=== PATIENT | female | born 1955 | race Caucasian/White ===

== ENCOUNTER 2017-02-05 13:29 | Emergency (ER) | payer OTHER ==
[~2017-02-05] VITALS: Ht 167.6 cm; Wt 88.0 kg
[~2017-02-05 13:29] MED LIST: PRIL20CA PO; VALA500T PO
[2017-02-05 13:47] VITALS: BP 109/53; PULSE 84; RESP 24; TEMP 101; O2SAT 94
[2017-02-05] MEDS ORDERED: SODIUM CHLOR 0.9% 1000 ML INJ 1,000 ML IV SCH ×2 (13:50)
[2017-02-05 13:51] VITALS: BP 109/53; PULSE 90; RESP 24; TEMP 101; O2SAT 98
[2017-02-05 13:55] VITALS: O2SAT 98
[2017-02-05] MEDS ORDERED: ONDANSETRON HCL 4 MG/2 ML VIAL IVP ONE (14:00)
--- NOTE | 2017-02-05 14:03 | PD ---
HPI Chief Complaint: Dizziness Time Seen by Provider: 13:45 Travel History International Travel<30 days: No Contact w/Intl Traveler<30days: No Traveled to known affect area: No History of Present Illness HPI This is a 61-year-old female with history of non-Hodgkin's lymphoma in remission for the past 6 years. She presents via EMS for evaluation of fever, weakness, syncope, vaginal discharge. The patient reports that she has a new boyfriend and over the past month she has been having intercourse very frequent only. As a result she developed some yellow foul-smelling discharge several days ago. She was seen at walk-in clinic where pelvic examination and testing was performed. She was diagnosed with vaginitis and prescribed Flagyl which she started using 2 days ago. Yesterday she was feeling weak and lightheaded for most of the day, worse when standing and improves when she is lying down flat. She also was having some epigastric abdominal cramping. Today she had persistent symptoms and she was seen at an urgent care center where according to her paperwork the plan was to discontinue the Flagyl and start her on clindamycin gel intravaginally. Prior to discharge she apparently had a syncopal event in a chair and urinated on the chair. There was no reported seizure activity or postictal state. Upon my examination she is awake and alert and is currently feeling okay. She does endorse fevers this morning as high as 102 at home. She endorses some intermittent abdominal pain, cramping, and the epigastrium. She denies any dysuria, flank pain, stiff neck, rash, headache, chest pain or shortness of breath, cough. She does endorse congestion for the past 2 months. She has no other complaints at this time. PFSH Past Medical History Cancer: Yes (T CELL NON HODGKINS LYMPHOMA 2009 ) Diabetes: No Diminished Hearing: No Hepatitis: No Hiatal Hernia: No Medical other: Yes (SARCOIDOSIS) Respiratory: Yes (BRONCHITIS) Thyroid Disease: No Menopausal: Yes : 2 Para: 2 Past Surgical History Abdominal Surgery: Yes (LAP DOUGLAS) Cardiac Surgery: No Cholecystectomy: Yes Ear Surgery: No Endocrine Surgery: No Eye Surgery: No Genitourinary Surgery: No Gynecologic Surgery: No Oral Surgery: No Pacemaker: No Thoracic Surgery: No Tonsillectomy: Yes Other Surgery: Yes Social History Alcohol Use: Yes ("A COUPLE DRINKS HERE AND THERE") Tobacco Use: No Substance Use: No Allergies-Medications (Allergen,Severity, Reaction): Coded Allergies: Codeine (Verified Allergy, Severe, Hallucinations, 02/05/17) Uncoded Allergies: ASPARTANE (Allergy, Mild, HEADACHE/VOMITING, 06/09/07) Reported Meds & Prescriptions Reported Meds & Active Scripts Active No Active Prescriptions or Reported Medications Review of Systems Except as stated in HPI: all other systems reviewed are Neg Physical Exam Narrative GENERAL: Well-developed well-nourished female in no acute distress. SKIN: Warm and dry. HEAD: Atraumatic. Normocephalic. EYES: Pupils equal and round. No scleral icterus. No injection or drainage. ENT: No nasal bleeding or discharge. Mucous membranes pink and moist. NECK: Trachea midline. No JVD. CARDIOVASCULAR: Regular rate and rhythm. No murmur appreciated. RESPIRATORY: No accessory muscle use. Clear to auscultation. Breath sounds equal bilaterally. GASTROINTESTINAL: Abdomen soft, mild tenderness to palpation in the epigastrium and lower quadrants without guarding. There is no CVA tenderness. Pelvic examination performed in the presence of a female nurse: There is some irritation and erythema of the vaginal canal. There is some yellow discharge noted in the distal vaginal canal. The cervical os is closed. There is no cervical motion tenderness or adnexal tenderness. MUSCULOSKELETAL: No obvious deformities. No clubbing. No cyanosis. No edema. NEUROLOGICAL: Awake and alert. No obvious cranial nerve deficits. Motor grossly within normal limits. Normal speech. PSYCHIATRIC: Appropriate mood and affect; insight and judgment normal. Data Data Last Documented VS Vital Signs Date Time Temp Pulse Resp B/P Pulse Ox O2 Delivery O2 Flow Rate FiO2 02/05/17 15:45 97.8 82 18 94/51 98 Room Air Orders Complete Blood Count With Diff (02/05/17 13:50) Comprehensive Metabolic Panel (02/05/17 13:50) Lactic Acid Sepsis Protocol (02/05/17 13:50) Lipase (02/05/17 13:50) Ckmb (Isoenzyme) Profile (02/05/17 13:50) Troponin I (02/05/17 13:50) Urinalysis - C+S If Indicated (02/05/17 13:50) Blood Culture (02/05/17 13:50) Chest, Single Ap (02/05/17 13:50) Ecg Monitoring (02/05/17 13:50) Iv Access Insert/Monitor (02/05/17 13:50) Oximetry (02/05/17 13:50) Oxygen Administration (02/05/17 13:50) Influenzae A/B Antigen (02/05/17 13:50) Electrocardiogram (02/05/17 13:50) Ct Abd/Pel W Iv Contrast(Rout) (02/05/17 13:50) Ondansetron Inj (Zofran Inj) (02/05/17 14:00) Sodium Chlor 0.9% 1000 Ml Inj (Ns 1000 M (02/05/17 13:50) Sodium Chlor 0.9% 1000 Ml Inj (Ns 1000 M (02/05/17 13:50) Gc And Chlamydia Pcr (02/05/17 15:23) Wet Prep Profile (02/05/17 15:23) Urine Culture (02/05/17 15:30) Iohexol 350 Inj (Omnipaque 350 Inj) (02/05/17 16:29) Ceftriaxone Inj (Rocephin Inj) (02/05/17 17:15) Azithromycin Inj (Zithromax Inj) (02/05/17 17:15) Labs Laboratory Tests Test 02/05/17 02/05/17 02/05/17 14:00 15:30 15:40 White Blood Count 7.1 TH/MM3 Red Blood Count 3.99 MIL/MM3 Hemoglobin 12.6 GM/DL Hematocrit 36.2 % Mean Corpuscular Volume 90.7 FL Mean Corpuscular Hemoglobin 31.5 PG Mean Corpuscular Hemoglobin 34.8 % Concent Red Cell Distribution Width 14.1 % Platelet Count 116 TH/MM3 Mean Platelet Volume 7.5 FL Neutrophils (%) (Auto) 87.7 % Lymphocytes (%) (Auto) 2.5 % Monocytes (%) (Auto) 7.2 % Eosinophils (%) (Auto) 2.4 % Basophils (%) (Auto) 0.2 % Neutrophils # (Auto) 6.3 TH/MM3 Lymphocytes # (Auto) 0.2 TH/MM3 Monocytes # (Auto) 0.5 TH/MM3 Eosinophils # (Auto) 0.2 TH/MM3 Basophils # (Auto) 0.0 TH/MM3 CBC Comment DIFF FINAL Differential Comment Sodium Level 136 MEQ/L Potassium Level 3.7 MEQ/L Chloride Level 102 MEQ/L Carbon Dioxide Level 24.5 MEQ/L Anion Gap 10 MEQ/L Blood Urea Nitrogen 14 MG/DL Creatinine 1.06 MG/DL Estimat Glomerular Filtration 53 ML/MIN Rate Random Glucose 125 MG/DL Lactic Acid Level 1.2 mmol/L Calcium Level 8.6 MG/DL Total Bilirubin 0.5 MG/DL Aspartate Amino Transf 28 U/L (AST/SGOT) Alanine Aminotransferase 26 U/L (ALT/SGPT) Alkaline Phosphatase 61 U/L Total Creatine Kinase 54 U/L Troponin I LESS THAN 0.02 NG/ML Total Protein 6.7 GM/DL Albumin 3.4 GM/DL Lipase 51 U/L Urine Color YELLOW Urine Turbidity HAZY Urine pH 5.5 Urine Specific [place] 1.017 Urine Protein 30 mg/dL Urine Glucose (UA) NEG mg/dL Urine Ketones NEG mg/dL Urine Occult Blood SMALL Urine Nitrite NEG Urine Bilirubin NEG Urine Urobilinogen LESS THAN 2.0 MG/DL Urine Leukocyte Esterase LARGE Urine RBC 18 /hpf Urine WBC /hpf Urine Squamous Epithelial 1 /hpf Cells Urine Transitional Epithelial 1 /hpf Cells Urine Renal Epithelial Cells <1 /hpf Urine Bacteria RARE /hpf Urine Mucus FEW /lpf Microscopic Urinalysis Comment CATH-CULTURE IND Clue Cells (Wet Prep) NONE SEEN Vaginal Trichomonas (Wet Prep) NONE SEEN Vaginal Yeast (Wet Prep) NONE SEEN MDM Medical Decision Making Medical Screen Exam Complete: Yes Emergency Medical Condition: Yes Medical Record Reviewed: Yes Differential Diagnosis Medication side effect, dehydration, electrolyte abnormality, rhabdomyolysis, heat illness, pelvic inflammatory disease, tubo-ovarian abscess, cystitis, pyelonephritis Narrative Course 61-year-old female who started on Flagyl 2 days ago for vaginitis, been experiencing some yellow discharge for the past several days, presents now with generalized weakness and lightheadedness for the past 2 days as well as some upper abdominal discomfort. She had a likely syncopal event today at an urgent care center. She is also been febrile at home today. On initial examination she appears well and she reports minimal complaints. She is febrile and her blood pressure somewhat low. She is not tachycardic. The patient was placed on the monitor and pulse oximetry. A 12-lead EKG will be obtained. Plan is for basic lab work, chest x-ray, CT of the abdomen and pelvis, pelvic examination. She will be given 2 L of IV fluids. The patient's labwork imaging studies a been reviewed. Her CT of the abdomen as well as her chest x-ray are suggestive of some developing pneumonia in the left lower lung. Upon further questioning the patient does endorse a dry cough which started 2 days ago. Her urinalysis is certainly suggestive of UTI as well with innumerable WBCs, cultures currently pending. Her wet prep was negative for clue cells/trichomoniasis/yeast and given her history it would be reasonable to cover her empirically for chlamydia and gonorrhea pending PCR results. The patient will therefore be given a dose of Rocephin and azithromycin through the IV here which should cover for community acquired pneumonia, chlamydia and gonorrhea, UTI. She'll be discharged with a ten-day course of Levaquin which should be reasonable coverage for UTI and pneumonia. She is feeling significantly improved and she was able to stand without assistance and without any dizziness or lightheadedness. Her blood pressure has improved as well to a systolic of 114 while standing. We discussed signs and symptoms warrant returning to the emergency room. She is stable for discharge. She has requested a prescription for the clindamycin vaginal suppository that was being prescribed by the urgent care center today. Diagnosis Primary Impression: Pneumonia Qualified Code: J18.1 - Pneumonia of left lower lobe due to infectious organism Additional Impressions: UTI (urinary tract infection) Qualified Code: N30.01 - Acute cystitis with hematuria Vaginal discharge Additional Instructions: Quit taking the Flagyl. Use the medication as prescribed. Stay well-hydrated and well-nourished, get plenty of rest. Follow-up with primary care physician in 2 days for recheck. Return for any acutely new or worsening symptoms. Med/Other Pt SpecificInfo: Prescription(s) given Scripts Clindamycin Vaginal Supp (Cleocin Vaginal Supp)100 Mg Supp1 Supp VAGINAL HS #3 SUPP Ref 0 Prov:Daren Romeo MD 02/05/17 Levofloxacin (Levaquin)500 Mg Tablet1 Tab PO DAILY 10 Days Prov:Daren Romeo MD 02/05/17 Disposition: 01 DISCHARGE HOME Condition: Stable Cm Newby Feb 05, 2017 14:03
[2017-02-05 14:19] LABS: AUTOMATED NEUTROPHIL # 6.3 TH/MM3 (1.8-7.7); BASOPHIL % 0.2 % (0.0-2.0); EOSINOPHIL # 0.2 TH/MM3 (0-0.4); EOSINOPHIL % 2.4 % (0.0-4.0); HEMATOCRIT 36.2 % (35.0-46.0); HEMO FLAGS DIFF FINAL; LYMPH % 2.5 % (9.0-44.0); LYMPHOCYTE # 0.2 TH/MM3 (1.0-4.8); MEAN CELL VOLUME 90.7 FL (80.0-100.0); MEAN CORPUSCULAR HEMOGLOBIN 31.5 PG (27.0-34.0); MEAN CORPUSCULAR HGB CONC 34.8 % (32.0-36.0); MONO % 7.2 % (0.0-8.0); NEUT % 87.7 % (16.0-70.0); PLATELET COUNT 116 TH/MM3 (150-450); RED BLOOD COUNT 3.99 MIL/MM3 (4.00-5.30); RED CELL DISTRIBUTION WIDTH 14.1 % (11.6-17.2); WHITE BLOOD COUNT 7.1 TH/MM3 (4.0-11.0)
[2017-02-05 14:34] LABS: ALT (GPT) 26 U/L (10-53); ANION GAP 10 MEQ/L (5-15); AST (GOT) 28 U/L (15-37); BICARBONATE 24.5 MEQ/L (21.0-32.0); BLOOD UREA NITROGEN 14 MG/DL (7-18); CHLORIDE 102 MEQ/L (98-107); GLOMERULAR FILTRATION RATE 53 ML/MIN (>89); POTASSIUM 3.7 MEQ/L (3.5-5.1); SODIUM (NA) 136 MEQ/L (136-145)
[2017-02-05 14:38] LABS: ALKALINE PHOSPHATASE 61 U/L (45-117); TOTAL BILIRUBIN ADULT 0.5 MG/DL (0.2-1.0)
[2017-02-05 14:39] LABS: CREATINE KINASE 54 U/L (26-192)
--- NOTE | 2017-02-05 14:41 | RADRPT ---
EXAM DATE/TIME: 02/05/2017 13:54 [facility] COMPARISON: No previous studies available for comparison. INDICATIONS : Fever MEDICAL HISTORY : None. SURGICAL HISTORY : None. ENCOUNTER: Initial ACUITY: 1 day PAIN SCORE: 0/10 LOCATION: Chest FINDINGS: The heart and mediastinal structures are normal. The pulmonary vascular pattern is normal. Left bas ilar streakiness is noted consistent with atelectasis and/or developing infiltrate. CONCLUSION: 1. Left basilar streakiness consistent with atelectasis and/or developing infiltrate. Clinical harjit elation is recommended. Parth Bowman MD on February 05, 2017 at 14:25 Board Certified Radiologist. This report was verified electronically.
[2017-02-05 15:45] VITALS: BP 94/51; PULSE 82; RESP 18; TEMP 97.8; O2SAT 98
[2017-02-05 16:13] LABS: BACTERIA, URINE RARE /hpf; BLOOD, URINE SMALL (NEG); COMMENT (UR) CATH-CULTURE IND; CULTURE IF INDICATED CATH CULTURE IND; GLUCOSE,URINE NEG (NEG); KETONE, URINE NEG (NEG); MUCUS URINE FEW /lpf (OCC); NITRITE,URINE NEG (NEG); PH, URINE 5.5 (5.0-8.5); RENAL EPITHELIAL CELLS <1 /hpf; SQUAMOUS EPITHELIAL CELL URINE 1 /hpf (0-5); TRANSITIONAL EPI CELLS, URINE 1 /hpf; URINE COLOR YELLOW (YELLW/STRAW)
[2017-02-05] MEDS ORDERED: IOHEXOL 350 MG/ML 10 ML VIAL (for RAD DIAG) IV ONE (16:29)
--- NOTE | 2017-02-05 16:52 | RADRPT ---
EXAM DATE/TIME: 02/05/2017 16:24 [facility] COMPARISON: CHEST SINGLE AP, February 05, 2017, 13:54. INDICATIONS : Abdominal pain.Fever.Vaginititis with possible allergic reaction. IV CONTRAST: 62 cc Omnipaque 350 (iohexol) IV ORAL CONTRAST: No oral contrast ingested. RADIATION DOSE: 12.55 CTDIvol (mGy) MEDICAL HISTORY : Non hodgkins lymphoma,sarcoidosis. SURGICAL HISTORY : Cholecystectomy. ENCOUNTER: Initial ACUITY: 3 days PAIN SCALE: 6/10 LOCATION: abdomen TECHNIQUE: Volumetric scanning of the abdomen and pelvis was performed. Using automated exposure control and ad justment of the mA and/or kV according to patient size, radiation dose was kept as low as reasonably achievable to obtain optimal diagnostic quality images. DICOM format image data is available electro nically for review and comparison. FINDINGS: LOWER LUNGS: Multifocal areas of opacity at the left lung base correlate with the opacity seen on chest x-ray and are suspicious for multifocal areas of infiltrate measuring up to 2 cm. There is also mild thickenin g of the pleura in the left costophrenic angle measuring up to 6 mm. LIVER: Homogeneous density without solid lesion. There is a smooth-walled hypodense lesion in the medial se gment left lobe measuring 2.7 cm, CT density 5 Hounsfield units, characteristic of a cyst. There is no dilation of the biliary tree. Cholecystectomy. SPLEEN: Normal size without lesion. PANCREAS: Within normal limits. KIDNEYS: Normal in size and shape. There is no mass, stone or hydronephrosis. ADRENAL GLANDS: Within normal limits. VASCULAR: There is no aortic aneurysm. BOWEL/MESENTERY: No dilated loops of small or large bowel. ABDOMINAL WALL: Within normal limits. RETROPERITONEUM: There is no lymphadenopathy. BLADDER: No wall thickening or mass. REPRODUCTIVE: Anteverted uterus. No definitive evidence of free fluid. INGUINAL: Right inguinal node measures 1.6 cm but still has a discernible fatty hilum. MUSCULOSKELETAL: Within normal limits for patient age. CONCLUSION: 1. Multifocal small areas of infiltrate at the left base with associated mild pleural thickening. 2. No concerning findings in the abdomen/pelvis. Mihai Gómez MD on February 05, 2017 at 16:45 Board Certified Radiologist. This report was verified electronically.
[2017-02-05] MEDS ORDERED: LEVA500T20 PO (17:03)
[2017-02-05] MEDS ORDERED: CLEO100S VAGINAL (17:03)
[2017-02-05] MEDS ORDERED: AZITHROMYCIN INJ 500 MG in SODIUM CHLOR 0.9% 250 ML INJ 250 ML IV ONE (17:15)
[2017-02-05] MEDS ORDERED: cefTRIAXone INJ 1,000 MG in SODIUM CHLORIDE 0.9% INJ 100 ML IV ONE (17:15)
[2017-02-05 17:55] LABS: CHLAMYDIA PCR NOT DETECTED (NOT DETECT); NEISSERIA PCR NOT DETECTED (NOT DETECT)
[2017-02-05 18:39] VITALS: BP 130/77; TEMP 97.8
--- NOTE | 2017-02-06 14:13 | EKG ---
Date Performed: 02/05/2017 Time Performed: 13:45:02 PTAGE: 61 years EKG: Sinus rhythm LOW QRS VOLTAGE IN PRECORDIAL LEADS MODERATE INTRAVENTRICULAR CONDUCTION DELAY BORDERLINE ECG Compar ed to prior tracing no significant change PREVIOUS TRACING : 12/25/1997 12.21 DOCTOR: Valdo Valdes Interpretating Date/Time 02/06/2017 14:11:02
== END 2017-02-05 18:42 | disposition home or self-care (01) ==
LOC: NEPC 13:29
DX: J18.1 Lobar pneumonia, unspecified organism (principal); N30.01 Acute cystitis with hematuria; B96.89 Other specified bacterial agents as the cause of diseases classified elsewhere; N89.8 Other specified noninflammatory disorders of vagina; R55 Syncope and collapse
CPT/HCPCS: 71010; 74177; 80053; 81001; 82550; 83605; 83690; 84484; 85025; 87040; 87086; 87210; 87491; 87591; 87804; 93005; 96361; 96365; 96367; 96375; 99285; J0456; J0696; J2405; J7030; J7050; Q9967

== ENCOUNTER → 2017-08-17 | Day surgery (SDC) | payer OTHER ==
[~2017-08-17] VITALS: Ht 167.6 cm; Wt 92.1 kg
[~2017-08-17] MED LIST changes: +ACETAMINOPHEN/HYDROcodone 325 MG/5 MG TAB PO PRN; +BUPIVACAINE/EPINEPHRINE 0.25% 50 ML VIAL ONE; +CHLORHEXIDINE GLUCONATE 2 % 1 PACK (2 CLOTHS) TOPICAL PRN; +CLEO100S VAGINAL; +DEXAMETHASONE SOD PHOS 4 MG/ML VIAL IV ONE; +DO NOT ADM ANY ANTICOAGULANT DRUGS PRN; +LACTATED RINGER'S 1000 ML IV PRN; +LEVA500T33 PO; +LEVO75TA3 PO; +LEVOTHYROXINE SODIUM 75 MCG TAB PO SCH; +LIDOCAINE HCL 1% PF 5 ML SYRINGE OTHER ONE; +METOPROLOL TARTRATE 25 MG TAB PO PRN; +MIDAZOLAM HCL 2 MG/2 ML VIAL ONE; +ONDANSETRON HCL 4 MG/2 ML VIAL IV ONE; +PHENYLEPH/NS 1000 MCG/10 ML SYR IV ONE; +PHENYLEPHRINE HCL 10 MG/ML VIAL IV ONE; +POVIDONE IODINE 5% (ANTISEPSIS KIT) 4 APPLICATIONS EACH NARE PRN; -PRIL20CA PO; +PROPOFOL 200 MG/20 ML AMP IV ONE; +SODIUM CHLORID 0.9% 500 ML IV PRN; +SUCCINYLCHOLINE CHLORIDE 200 MG/10 ML VIAL IV ONE; +TRAM50 PO; -VALA500T PO; +ePHEDrine/NS 25 MG/5 ML SYRINGE IV ONE; +traMADol HCL 50 MG TAB PO PRN
[2017-08-17 13:43] LABS: AUTOMATED NEUTROPHIL # 2.5 TH/MM3 (1.8-7.7); BASOPHIL # 0.1 TH/MM3 (0-0.2); BASOPHIL % 1.2 % (0.0-2.0); EOSINOPHIL # 0.1 TH/MM3 (0-0.4); EOSINOPHIL % 2.5 % (0.0-4.0); HEMATOCRIT 39.1 % (35.0-46.0); HEMOGLOBIN 13.1 GM/DL (11.6-15.3); LYMPH % 35.2 % (9.0-44.0); LYMPHOCYTE # 1.7 TH/MM3 (1.0-4.8); MEAN CELL VOLUME 89.7 FL (80.0-100.0); MEAN CORPUSCULAR HEMOGLOBIN 30.2 PG (27.0-34.0); MEAN CORPUSCULAR HGB CONC 33.6 % (32.0-36.0); MEAN PLATELET VOLUME 7.7 FL (7.0-11.0); MONO % 7.7 % (0.0-8.0); MONOCYTE # 0.4 TH/MM3 (0-0.9); NEUT % 53.4 % (16.0-70.0); PLATELET COUNT 143 TH/MM3 (150-450); RED BLOOD COUNT 4.35 MIL/MM3 (4.00-5.30); RED CELL DISTRIBUTION WIDTH 14.3 % (11.6-17.2); WHITE BLOOD COUNT 4.7 TH/MM3 (4.0-11.0)
--- NOTE | 2017-08-17 15:30 | HHI.PR ---
cc: Luisito Ahn MD Immediate Post Op Note Procedure Date: Aug 17, 2017 Pre Op Diagnosis: (1) Thyroid mass of unclear etiology (2) Solitary nodule of right lobe of thyroid (3) History of radiation to head and neck region Post Op Diagnosis: (1) S/P total thyroidectomy (2) Solitary nodule of right lobe of thyroid (3) History of radiation to head and neck region (4) Thyroid mass of unclear etiology Surgeon: Luisito Ahn Assistant Plant Manager(s): Please refer to OR record Procedure: Total thyroidectomy with neuro monitoring Findings: Large right thyroid mass small thyroid gland to the left Complications: None Anesthesia: General Drains: None IVF Patient to: PACU Patient Condition: Good Implant/Devices: SEE IMPLANT LOG (if applicable) Date/Time of Procedure: SEE SURGICAL CARE RECORD Luisito Ahn MD Aug 17, 2017 15:30
[2017-08-17 17:59] VITALS: BP 142/66; PULSE 72; RESP 18; TEMP 97.2; O2SAT 98
--- NOTE | 2017-08-18 14:44 | EKG ---
Date Performed: 08/17/2017 Time Performed: 11:49:58 PTAGE: 62 years EKG: Sinus rhythm WITH OCCASIONAL SUPRAVENTRICULAR PREMATURE COMPLEXES LOW QRS VOLTAGE IN PRECORDIAL LEADS Since previ ous tracing, no significant change noted BORDERLINE ECG PREVIOUS TRACING : 02/05/2017 13.45 DOCTOR: Alice Barraza Interpretating Date/Time 08/18/2017 14:42:00
--- NOTE | 2017-08-19 09:14 | MP ---
cc: KYRA AHN M.D. DATE OF SURGERY 08/17/2017 PREOPERATIVE DIAGNOSIS Large thyroid mass right neck, right lobe of the thyroid. POSTOPERATIVE DIAGNOSIS Large thyroid mass right neck, right lobe of the thyroid. PROCEDURE Total thyroidectomy with neuromonitoring. ANESTHESIA General. SURGEON Dr. Ahn INDICATIONS This is a pleasant 62-year-old female who has a large thyroid mass. She has had a history of radiation therapy for malignancy. She was seen by an rubber goods inspector tester. She was advised to have a total thyroidectomy. PROCEDURE The patient was taken to the operating room, placed in the supine position. After anesthesia her neck is prepped with Betadine. Time-out is done. We make a curvilinear incision about 2 cm above sternal notch. Dissecting through the platysma muscle, identifying the strap muscles we create flaps superiorly and inferiorly just underneath the platysma muscle. The strap muscles are then retracted laterally. We then first direct our attention to the left lobe; it was somewhat atrophied and small. It is very vascular with multiple middle thyroidal veins. These are all taken down with the harmonic scalpel. The inferior thyroidal vessels are taken down with the harmonic scalpel and the superior thyroidal vessels treated in a similar fashion. We do see the superior parathyroid gland and I believe the left inferior parathyroid gland. The gland is much atrophied. We retract it up medially to the trachea, clearly identifying the laryngeal nerve both visually and with the neuromonitoring device. We dissect all the way up to the isthmus along the trachea. We then direct our attention the right lobe. The right lobe is much enlarged from the mass mostly on the superior aspect of the gland. The superior vessels are taken down with harmonic scalpel and the middle thyroidal vein, harmonic scalpel on the inferior thyroidal vessels treated in a similar fashion. The mass measures approximately 6 cm. It is retracted medially, again clearly identifying the recurrent laryngeal nerve both visually and with the neuromonitor. We then dissect all the way to the trachea and remove the specimen. A stitch is placed on the left superior aspect of the thyroid gland. I then irrigate. Hemostasis assured. Both laryngeal nerves are then again identified visually and with neuromonitor, appear to be intact. The right superior parathyroid gland could be visualized but I could not see the inferior gland. After adequate hemostasis, then closed the strap muscle in the midline with 2-0 Vicryl. The platysma muscle was reapproximated with 3-0 Vicryl and skin is closed with a 3-0 Vicryl as well. The patient was extubated, had normal phonation in the recovery room. I discussed the intraoperative findings with the family, the son by phone. MD CHERIE Martin/RASHID /4:37 PM /8:49 AM
== END | disposition home or self-care (01) ==
LOC: HSDC 11:00
PROVIDERS: ATTEND Surgery
DX: D34 Benign neoplasm of thyroid gland (principal); C84.40 Peripheral T-cell lymphoma, not elsewhere classified, unspecified site; Z92.3 Personal history of irradiation; Z94.84 Stem cells transplant status
CPT/HCPCS: 00320; 60240; 85025; 88307; 93005; J0330; J1100; J2250; J2370; J2405; J3010; J7120